=== PATIENT | female | born 1955 | race Caucasian/White ===

== ENCOUNTER 2021-10-24 06:22 | Day surgery (SDC) | payer BC ==
[2021-10-24] VITALS (8 sets, daily range): BP systolic 116–147; BP diastolic 75–99
[~2021-10-24] VITALS: Ht 157.5 cm; Wt 54.3 kg
[2021-10-24] MEDS ORDERED: normal saline 1000ml 1,000 ML IV PRN (06:55)
[2021-10-24] MEDS ORDERED: HYDR118S10 PO (07:15)
[2021-10-24] MEDS ORDERED: LOSA100T57 PO (07:15)
[2021-10-24] MEDS ORDERED: LIDO20SO24 (07:15)
[2021-10-24] MEDS ORDERED: multivitamin (07:21)
[2021-10-24] MEDS ORDERED: Tricor (07:21)
[2021-10-24] MEDS ORDERED: prevacid (07:21)
[2021-10-24] MEDS ORDERED: mucinex (07:21)
[2021-10-24 07:28] LABS: BASOPHILS % (AUTO) 0.4 % (0-1); EOSINOPHILS # (AUTO) 0.2 X10'3 (0-0.9); EOSINOPHILS % (AUTO) 4.2 % (0-6); HEMATOCRIT 35.4 % (35.0-45.0); LYMPHOCYTES # (AUTO) 0.5 X10'3 (1.1-4.8); LYMPHOCYTES % (AUTO) 11.1 % (21-51); MEAN CORPUSCULAR HEMOGLOBIN 30.8 PG (27.0-31.0); MEAN CORPUSCULAR HGB CONC 33.8 g/dL (33.0-36.5); MEAN CORPUSCULAR VOLUME 91.2 FL (78-98); MONOCYTES # (AUTO) 0.3 X10'3 (0-0.9); MONOCYTES % (AUTO) 6.7 % (2-12); NEUTROPHILS # (AUTO) 3.5 X10'3 (1.8-7.7); NEUTROPHILS % (AUTO) 77.6 % (42-75); PLATELET COUNT 184 X10'3 (140-440); RED BLOOD COUNT 3.88 X10'6 (4.20-5.60); RED CELL DISTRIBUTION WIDTH 12.8 % (11.5-14.5); WHITE BLOOD COUNT 4.5 X10'3 (4.5-11.0)
[2021-10-24] MEDS ORDERED: midazolam 1 mg/ML 2ml injection ONE ×2 (08:08→09:15)
[2021-10-24] MEDS ORDERED: LIDOcaine 1%/PF 5ML 10 MG/ML VIAL ONE ×2 (08:08→09:18)
[2021-10-24] MEDS ORDERED: fentaNYL/PF 50MCG/1 ML 2ML syringe ONE ×2 (08:08→09:15)
[2021-10-24] MEDS ORDERED: iohexol 350MG/ML 100ml bottle IV ONE (08:17)
[2021-10-24] MEDS ORDERED: glucagon, human recombinant 1mg kit ONE (08:17)
[2021-10-24] MEDS ORDERED: LIDOcaine 2% 10ml TOPICAL JELLY (Urojet) MM ONE (09:05)
== END 2021-10-24 12:50 | disposition home or self-care (01) ==
LOC: SSTAY O 06:22
PROVIDERS: ATTEND Radiology Vascular & Interventional Radiology
DX: C32.0 Malignant neoplasm of glottis (principal); Z79.01 Long term (current) use of anticoagulants; Z79.899 Other long term (current) drug therapy
CPT/HCPCS: 36415; 49440; 85025; 85610; 93005; 99152; 99153; C1713; J1610; J2250; J3010; J3490; J7030; Q9967; A4620; B4087

== ENCOUNTER 2021-12-10 14:17 | Emergency (ER) | payer BC ==
[~2021-12-10] VITALS: Ht 157.5 cm; Wt 56.0 kg
[2021-12-10 14:17] VITALS: BP 96/59
[~2021-12-10 14:17] MED LIST: HYDR118S10 PO; LIDO20SO24; LOSA100T57 PO; Tricor; diatrozoate meglu/diatrozoate sod (37% iodine) 120ML oral solution ONE; mucinex; multivitamin; prevacid
[2021-12-10] MEDS ORDERED: diatrozoate meglu/diatrozoate sod (37% iodine) 120ML oral solution PO ONE (17:55)
[2021-12-10] MEDS ORDERED: IOHEXOL 12MG/ML oral solution 500 ML BOTTLE PO ONE (18:00)
--- NOTE | 2021-12-10 18:24 | NUR ---
18 f PEG tube replaced by provider.
[2021-12-10] MEDS ORDERED: diatr meglu/diatrizoate 30ml oral sol.-(3 dose) bottle PO ONE (18:40)
== END 2021-12-10 18:27 | disposition home or self-care (01) ==
LOC: ER 14:18
DX: K94.23 Gastrostomy malfunction (principal)
CPT/HCPCS: 43762; 74018; 99284; Q9963

== ENCOUNTER 2022-07-15 12:34 | Outpatient (CLI) | payer BC, OTHER ==
[~2022-07-15 12:34] MED LIST changes: +LIDO15SO3; -LIDO20SO24; -LOSA100T57 PO; +LOSA100T58 PO; -diatrozoate meglu/diatrozoate sod (37% iodine) 120ML oral solution ONE
== END 2022-07-15 23:59 | disposition home or self-care (01) ==
LOC: RAD 12:34
PROVIDERS: ATTEND Physician Assistant
DX: C85.89 Other specified types of non-Hodgkin lymphoma, extranodal and solid organ sites (principal); R49.0 Dysphonia; R13.12 Dysphagia, oropharyngeal phase
CPT/HCPCS: 74230

== ENCOUNTER 2024-06-27 08:59 | Day surgery (SDC) | payer MEDICARE, MEDICAID ==
[~2024-06-27] VITALS: Ht 157.5 cm; Wt 70.9 kg
[~2024-06-27 08:59] MED LIST changes: +APIX5TAB3 PO; +ATOR20TA66 PO; +CALC-1260 PO; +CHOL20002 PO; +CITA20TA26 PO; +FENT1PAT11 TOP; +IPRA3AMP31 NEB; +LEVO88TA7 PO; -LIDO15SO3; +LORAZEPAM; +METO-384 PO; +OXYC10TA47 PO; +PANT40TA54 PO; -Tricor; +VALS160T30 PO; -multivitamin; -prevacid
[2024-06-27 09:28] VITALS: BP 172/87; PULSE 91; RESP 13
[2024-06-27] MEDS ORDERED: fentaNYL/PF 50MCG/1 ML 2ML syringe ONE (10:09)
[2024-06-27] MEDS ORDERED: midazolam 1 mg/ML 2ml injection ONE (10:10)
[2024-06-27] MEDS ORDERED: propofol inj 20 ML IV ONE ×2 (10:10→10:42)
[2024-06-27 11:15] VITALS: BP 95/45; PULSE 69; RESP 18; O2SAT 98
[2024-06-27 11:25] VITALS: BP 110/59; PULSE 69; RESP 17; O2SAT 97
[2024-06-27 11:35] VITALS: BP 122/59; PULSE 65; RESP 16; O2SAT 96
[2024-06-27 11:45] VITALS: BP 114/65; PULSE 69; RESP 15; O2SAT 100
--- NOTE | 2024-06-28 11:21 | PATHOLOGY REPORT ---
[facility] [address] [place] [address] SURGICAL PATHOLOGY REPORT CaseNumber: [id number] Surgeon:Jennifer Shaffer M.D. CLINICAL INFORMATION CLINICAL INFORMATION: Iron deficiency anemia secondary to chronic blood loss. DIAGNOSIS DIAGNOSIS: A.COLON, TRANSVERSE; BIOPSY - TUBULAR ADENOMA. - NEGATIVE FOR HIGH-GRADE DYSPLASIA. DIAGNOSIS: B.COLON, ASCENDING; BIOPSY - TUBULAR ADENOMA. - NEGATIVE FOR HIGH-GRADE DYSPLASIA. DIAGNOSIS: C.COLON, SIGMOID; BIOPSY - FRAGMENTS OF TUBULAR ADENOMA. - NEGATIVE FOR HIGH-GRADE DYSPLASIA. MICROSCOPIC DESCRIPTION A. COLON, TRANSVERSE MICROSCOPIC DESCRIPTION: Performed B. COLON, ASCENDING MICROSCOPIC DESCRIPTION: Performed C. COLON, SIGMOID MICROSCOPIC DESCRIPTION: Performed GROSS DESCRIPTION A. COLON, TRANSVERSE GROSS DESCRIPTION: Received in a container of formalin labeled with the patient's name, number, and " transverse colon polyp" is a 0.9 x 0.9 x 0.7 cm polypoid piece of [place]ott tissue. The specimen is sectio antonino. The specimen is entirely submitted as A1. The time at which the specimen was removed was 1043. T he time at which the specimen was placed in formalin was 1044. B. COLON, ASCENDING GROSS DESCRIPTION: Received in a container of formalin labeled with the patient's name, number, and " ascending colon polyp" is a 0.6 x 0.4 x 0.1 cm piece of [place]ott tissue. The specimen is bisected. The sp ecimen is entirely submitted as B1. The time at which the specimen was removed was 1057. The time at which the specimen was placed in formalin was 1057. C. COLON, SIGMOID GROSS DESCRIPTION: Received in a container of formalin labeled with the patient's name, number, and " sigmoid colon polyp" are 2 pieces of [facility]cder[facility]ott tissue 0.6 x 0.4 x 0.1 and 0.7 x 0.6 x 0.1 cm. The specimen s are bisected. The specimen is entirely submitted as C1. The time at which the specimen was removed was 1102. The time at which the specimen was placed in formalin was 1106. Electronically signed by: Ernesto Jean, 06/28/2024 10:43:00 AM
== END 2024-06-27 11:48 | disposition home or self-care (01) ==
LOC: GI LAB 08:59
PROVIDERS: ATTEND Internal Medicine Gastroenterology
DX: D50.0 Iron deficiency anemia secondary to blood loss (chronic) (principal); D12.5 Benign neoplasm of sigmoid colon; D12.3 Benign neoplasm of transverse colon; D12.2 Benign neoplasm of ascending colon; I10 Essential (primary) hypertension; I42.9 Cardiomyopathy, unspecified; Z79.899 Other long term (current) drug therapy
CPT/HCPCS: 43235; 45385; C1889; J2250; J2704; J3010; Z7512; 45380

== ENCOUNTER 2024-07-04 11:12 | Outpatient (CLI) | payer MEDICARE, MEDICAID ==
--- NOTE | 2024-07-04 12:20 | RADIOLOGY REPORT ---
INDICATION: RIGHT WRIST PAIN TECHNIQUE: 4 radiographic views of the right wrist were obtained. COMPARISON: None FINDINGS: There is no evidence of acute fracture or dislocation.The visualized joint space is well ma intained.The alignment is anatomical.The surrounding soft tissues are unremarkable.There is no bony l esions or erosions identified. IMPRESSION: No fracture.
== END 2024-07-04 23:59 | disposition home or self-care (01) ==
LOC: RAD 11:12
PROVIDERS: ATTEND Nurse Practitioner
DX: M25.531 Pain in right wrist (principal)
CPT/HCPCS: 73110